=== PATIENT | female | born 1975 | race Caucasian/White ===

== ENCOUNTER 2025-07-13 15:04 | Emergency (ER) | payer BC, SELFPAY ==
[2025-07-13 15:08] VITALS: BP 157/93
[2025-07-13 15:33] LABS: Hematocrit 42.6 % (37.0-47.0); Hemoglobin 15.1 g/dL (12.0-16.0); Mean Corp Hgb Conc. 35.4 g/dL (33.0-37.0); Mean Corpuscular Volume 88.9 fL (81.0-99.0); Nucleated Red Blood Cells % 0 %; Platelet Count 197 10^3/uL (130-400); Red Cell Dist. Width 12.4 % (11.5-14.5)
[2025-07-13 15:49] LABS: ALT (SGPT) 78 U/L (0-35); AST (SGOT) 49 U/L (14-36); Albumin 5.3 g/dl (3.5-5.0); Alkaline Phosphatase 62 U/L (38-126); Blood Urea Nitrogen 11 mg/dl (7-17); Calcium 10.3 mg/dl (8.4-10.2); Carbon Dioxide 27 mmol/L (22-30); Chloride 105 mmol/L (98-107); Glucose 109 mg/dl (70-99); Potassium 4.5 mmol/L (3.5-5.1); Sodium 138 mmol/L (135-145); Total Protein 8.4 g/dl (6.3-8.2); eGFR > 60.00
--- NOTE | 2025-07-13 18:18 | ED.GENMED ---
History of Present Illness
General
Chief Complaint: Numbness
Time Seen by Provider: 07/13/25 17:54
History of Present Illness
History of Present Illness:
49-year-old female presents to the emergency department for evaluation of left-sided tongue paresthesia and facial numbness that began 2 days ago, she feels as though food tastes weird. Denies any vision changes, headaches, rashes, or tick bites.
No recent fevers or chills.
Review of Systems
Review of Systems
Allergies reviewed?: Yes
All Other Systems: ROS reviewed and negative except as documented in HPI and ROS
Phy Exam
Physical Exam
Physical Exam:
GEN: Well appearing, NAD, WDWN
HEENT: Oral mucosa moist, no scleral icterus
Cardiac: Regular rate
Lung: No respiratory distress, no tachypnea
MSK: No gross deformity or injuries
Skin: Good color, no pallor or jaundice, no rashes
Neuro: AO x3, moves all extremities freely. There is subtle right facial asymmetry particularly with blinking and smile, otherwise cranial nerves II through XII grossly intact
Psych: Calm, cooperative
Course
Orders/Labs/Results
Orders:
Orders
07/13/25 15:[address] [CT Head W/o Iv Contrast] Urgent
Comment:
Reason For Exam: left facial numbness
07/13/25 15:16
Complete Blood Count/With Diff Urgent
Comprehensive Metabolic Panel Urgent
Lyme Progressive Urgent
Comment: ADD ON
07/13/25 18:21
Add On- LAB Urgent
Tests Added?: Lyme Progressive
Abnormal Lab Results
07/13/25
15:16
MCH 31.5 H pg
(27.0-31.0)
MPV 11.2 H fL
(7.4-10.4)
Abs Immat Gran (auto) 0.1 H 10^3/uL
(0-0.05)
Immature Gran % 0.6 H %
(0-0.5)
Glucose 109 H mg/dl
(70-99)
Calcium 10.3 H mg/dl
(8.4-10.2)
AST 49 H U/L
(14-36)
ALT 78 H U/L
(0-35)
Total Protein 8.4 H g/dl
(6.3-8.2)
Albumin 5.3 H g/dl
(3.5-5.0)
07/13/25 15:16
07/13/25 15:16
Vital Signs
Initial and Last Documented VS:
Initial Vital Signs
Temp Pulse Resp BP Pulse Ox
98.5 F 92 16 157/93 98
07/13/25 15:08 07/13/25 15:08 07/13/25 15:08 07/13/25 15:08 07/13/25 15:08
Last Documented Vital Signs
Temp Pulse Resp BP Pulse Ox
98.5 F 92 16 157/93 98
07/13/25 15:08 07/13/25 15:08 07/13/25 15:08 07/13/25 15:08 07/13/25 18:20
MDM/Problems Addressed
MDM/Problems Addressed:
Neurologically she is otherwise normal with no focal deficits most likely this is a Summers's palsy, will cover with steroids and doxycycline for the time being until labs are resulted
*Pulse Oximetry
SaO2: 98
Oxygen Mode of Delivery: Room air
Patient hypoxic: no
*Critical Care Note
Total Time (30-74mins, 75-104mins- exclusive of procedures): Not Applicable
ED Attending Note
-
Portions of this chart may have been created with voice recognition software.� Occasional wrong word or��sound alike� substitutions may have occurred due to the inherent limitations of voice recognition software.
Discharge Plan
Departure
Patient Disposition: Home (Routine Discharge)
Date of Disposition: 07/13/25
Time of Disposition: 18:20
Patient with high blood pressure during this ER visit?: No
Discharge Problem:
Summers's palsy
Instructions: Summers's Palsy (DC)
Prescriptions:
New
prednisone 20 mg tablet
60 mg PO DAILY 7 Days Qty: 21 0RF
doxycycline hyclate 100 mg tablet
100 mg PO BID 21 Days Qty: 42 0RF
Interventions
Interventions:
*Risk Screen - Suicide Last Done: 07/13/25 15:08
*General Assessment Last Done: 07/13/25 15:08
*Neglect/Abuse Screening Last Done: 07/13/25 15:08
*ED- Fall Risk Assessment Last Done: 07/13/25 15:08
*ED COVID-19 Vaccine History Last Done: 07/13/25 15:08
*Nursing Disposition Last Done: 07/13/25 18:44
ED- Pulmonary Assessment Last Done: 07/13/25 17:47
ED- Neurological Assessment Last Done: 07/13/25 17:47
ED- Cardiac Assessment Last Done: 07/13/25 17:47
ED Swallowing Screen Last Done: 07/13/25 17:47
Discharge Date and Time
Discharge Date/Time: 07/13/25 18:40
Print Language: CITIZEN [place]
== END 2025-07-13 18:40 | disposition home or self-care (01) ==
LOC: EMR 15:04
PROVIDERS: Emergency Medicine; EMERGENCY PHYSICIAN Emergency Medicine
DX: G51.0 Bell's palsy (principal)
CPT/HCPCS: 99284; 70450; 80053; 85025